=== PATIENT | male | born 1965 | race Caucasian/White ===

== ENCOUNTER 2018-10-06 10:04 | Emergency (ER) | payer MEDICAID ==
[~2018-10-06] VITALS: Ht 177.8 cm; Wt 72.7 kg
[~2018-10-06 10:04] MED LIST: BAC10T PO; DOCU50CA4 PO; NORCO10T PO
[2018-10-06 10:06] VITALS: BP 103/71
== END 2018-10-06 11:05 | disposition home or self-care (01) ==
LOC: ER 10:04
DX: R32 Unspecified urinary incontinence (principal); Z13.89 Encounter for screening for other disorder; G89.29 Other chronic pain; Z86.73 Personal history of transient ischemic attack (TIA), and cerebral infarction without residual deficits; F12.90 Cannabis use, unspecified, uncomplicated; Z79.899 Other long term (current) drug therapy; Z59.0 Homelessness
CPT/HCPCS: 99284

== ENCOUNTER 2018-10-10 09:16 | Emergency (ER) | payer MEDICAID ==
[~2018-10-10] VITALS: Ht 177.8 cm; Wt 72.7 kg
[2018-10-10 09:29] VITALS: BP 91/62
--- NOTE | 2018-10-10 10:10 | NUR ---
Lesley from currently speaking with pt.
== END 2018-10-10 10:40 | disposition home or self-care (01) ==
LOC: ER 09:16
DX: Z46.6 Encounter for fitting and adjustment of urinary device (principal); Z13.89 Encounter for screening for other disorder; G89.29 Other chronic pain; F12.90 Cannabis use, unspecified, uncomplicated; F17.200 Nicotine dependence, unspecified, uncomplicated; Z86.73 Personal history of transient ischemic attack (TIA), and cerebral infarction without residual deficits
CPT/HCPCS: 99283

== ENCOUNTER 2018-10-16 18:06 | Emergency (ER) | payer MEDICAID ==
[~2018-10-16] VITALS: Ht 177.8 cm; Wt 72.7 kg
[2018-10-16 18:19] VITALS: BP 118/72
--- NOTE | 2018-10-16 18:52 | NUR ---
Provided pt with [facility] [employer] documentation after explaining the inappropriateness of the ED providing supplies for a chronic issue. Pt verbalized understanding. PRATIMA Vargas reiterated pt needed to follow up with source of prescription rather than ED./
== END 2018-10-16 19:50 | disposition home or self-care (01) ==
LOC: ER 18:07
DX: N39.498 Other specified urinary incontinence (principal); G89.29 Other chronic pain; F12.90 Cannabis use, unspecified, uncomplicated; Z86.73 Personal history of transient ischemic attack (TIA), and cerebral infarction without residual deficits; Z99.3 Dependence on wheelchair; Z79.899 Other long term (current) drug therapy
CPT/HCPCS: 99281

== ENCOUNTER 2019-09-17 07:46 | Emergency (ER) | payer MEDICAID ==
[~2019-09-17] VITALS: Ht 177.8 cm; Wt 76.4 kg
--- NOTE | 2019-09-17 08:13 | NUR ---
2-PERSON BED BATH PROVIDED. PT COVERED IN DRIED FECES.
[2019-09-17 08:41] LABS: URINE AMPHETAMINE SCREEN POSITIVE (Neg); URINE BARBITUATE SCREEN NEGATIVE (Neg); URINE BENZODIAZEPINES SCREEN NEGATIVE (Neg); URINE CANNABINOID SCREEN POSITIVE (Neg); URINE COCAINE SCREEN NEGATIVE (Neg); URINE METHADONE SCREEN NEGATIVE (Neg); URINE OPIATE SCREEN NEGATIVE (Neg); URINE PHENCYCLIDINE SCREEN NEGATIVE (Neg)
[2019-09-17 08:52] LABS: BASOPHILS # (AUTO) 0.1 X10'3 (0-0.2); BASOPHILS % (AUTO) 1.2 % (0-1); EOSINOPHILS # (AUTO) 0.2 X10'3 (0-0.9); EOSINOPHILS % (AUTO) 3.2 % (0-6); HEMATOCRIT 39.2 % (42.0-52.0); HEMOGLOBIN 13.2 g/dl (14.0-17.9); LYMPHOCYTES # (AUTO) 1.4 X10'3 (1.1-4.8); LYMPHOCYTES % (AUTO) 24.3 % (21-51); MEAN CORPUSCULAR HEMOGLOBIN 31.7 PG (27.0-31.0); MEAN CORPUSCULAR HGB CONC 33.6 g/dL (33.0-36.5); MEAN CORPUSCULAR VOLUME 94.2 FL (78-98); MONOCYTES # (AUTO) 0.5 X10'3 (0-0.9); MONOCYTES % (AUTO) 8.6 % (2-12); NEUTROPHILS # (AUTO) 3.6 X10'3 (1.8-7.7); NEUTROPHILS % (AUTO) 62.7 % (42-75); PLATELET COUNT 369 X10'3 (140-440); RED BLOOD COUNT 4.16 X10'6 (4.70-6.10); RED CELL DISTRIBUTION WIDTH 15.2 % (11.5-14.5); WHITE BLOOD COUNT 5.7 X10'3 (4.5-11.0)
[2019-09-17 09:04] LABS: CLARITY,URINE SLIGHTLY CLOUDY (Clear); COLOR,URINE YELLOW (Yellow); GLUCOSE, URINE NEGATIVE (Neg); KETONES,URINE NEGATIVE (Neg); LEUKOCYTE ESTERASE ,URINE NEGATIVE (Neg); NITRITES, URINE POSITIVE (Neg); OCCULT BLOOD,URINE TRACE-INTACT (Neg); PH,URINE 5.5 (4.8-8.0); PROTEIN,URINE NEGATIVE (Neg); UROBILINOGEN,URINE 0.2 E.U/dL (0.2-1.0)
[2019-09-17 09:07] LABS: ALANINE AMINOTRANSFERASE 24 U/L (12-78); ALBUMIN 3.3 G/DL (3.4-5.0); ALBUMIN/GLOBULIN RATIO 0.9 (1.1-1.5); ALKALINE PHOSPHATASE 127 IU/L (46-116); ANION GAP 8 (8-16); ASPARTATE AMINO TRANSFERASE 25 U/L (10-37); BILIRUBIN,TOTAL 0.2 MG/DL (0.1-1.0); BLOOD UREA NITROGEN 14 MG/DL (7-18); BUN/CREATININE RATIO 23.7 (5.4-32.0); CALCIUM 8.8 MG/DL (8.5-10.1); CHLORIDE 110 MMOL/L (99-107); CREATININE 0.59 MG/DL (0.60-1.10); ETHANOL < 0.010 GM/DL (0.0-0.010); GLUCOSE 103 MG/DL (70-104); SODIUM 142 MMOL/L (135-145); TOTAL CARBON DIOXIDE 24.1 MMOL/L (24-32); TOTAL PROTEIN 7.1 G/DL (6.4-8.2); eGFR > 90 ML/MIN
[2019-09-17 09:26] LABS: UA COLLECTION TYPE STRAIGHT CATH
[2019-09-17 09:28] LABS: BACTERIA,URINE 4+ /HPF (Neg); MUCUS STRANDS FEW /LPF (Neg); RBC,URINE 0-2 /HPF (0-2); SQUAMOUS EPITHELIAL CELL,UR FEW /LPF (FEW); WBC,URINE 30-50 /HPF (0-4)
--- NOTE | 2019-09-17 09:32 | NUR ---
Per [facility] SW, pt was able to stand and transfer from [facility] to . This is in [place] contrast to pt's reports medical hx where he reported being parapalegic, which was consistent with received EMS report. Per SW, discharge plan includes [facility] providing taxi to [facility], where pt's WC is currently locked up. Staff called [facility] and confirmed there will be personnel on site there to ensure pt has immediate access to upon arrival via taxi. PRATIMA Sagastume informed of change in pt medical hx.
[2019-09-17 10:18] VITALS: BP 131/81
--- NOTE | 2019-09-17 10:22 | NUR ---
Patient stated that he is parapalegic. Assited to restroom and then ambulated 10ft with moderate assist.
--- NOTE | 2019-09-20 16:38 | NUR ---
PHONE NUMBER LISTED NO GOOD. CALLED CONTACT NUMBER. SHE GAVE ME A NEW PHONE NUMBER [phone]. CALLED PHONE NUMBER TWICE. "I'M SORRY YOU HAVE REACHED A NUMBER THAT DOES NOT HAVE A VOICE MAIL SET UP".
== END 2019-09-17 10:25 | disposition home or self-care (01) ==
LOC: ER 07:46
DX: R53.1 Weakness (principal); F15.10 Other stimulant abuse, uncomplicated; G89.29 Other chronic pain; F12.90 Cannabis use, unspecified, uncomplicated; Z59.0 Homelessness; Z86.73 Personal history of transient ischemic attack (TIA), and cerebral infarction without residual deficits
CPT/HCPCS: 36415; 80053; 80305; 80320; 81001; 85025; 87077; 87088; 87186; 99283

== ENCOUNTER 2020-01-01 14:53 | Inpatient (IN) | payer MEDICAID ==
[~2020-01-01] VITALS: Ht 167.6 cm; Wt 75.5 kg
[2020-01-01] MEDS ORDERED: LORazepam 2 mg/ml vial IV ONE (15:10)
[2020-01-01] MEDS ORDERED: normal saline 1000ML IV soln IVB ONE (15:10)
[2020-01-01] MEDS ORDERED: CefTRIAXone 2gm/D5W 50ml 50 ML IV ONE (15:40)
[2020-01-01 15:45] LABS: BASOPHILS # (AUTO) 0.1 X10'3 (0-0.2); BASOPHILS % (AUTO) 0.8 % (0-1); EOSINOPHILS # (AUTO) 0.2 X10'3 (0-0.9); HEMATOCRIT 40.2 % (42.0-52.0); HEMOGLOBIN 13.2 g/dl (14.0-17.9); LYMPHOCYTES # (AUTO) 1.2 X10'3 (1.1-4.8); LYMPHOCYTES % (AUTO) 15.2 % (21-51); MEAN CORPUSCULAR HEMOGLOBIN 30.7 PG (27.0-31.0); MEAN CORPUSCULAR HGB CONC 32.8 g/dL (33.0-36.5); MEAN CORPUSCULAR VOLUME 93.6 FL (78-98); MEAN PLATELET VOLUME 8.3 FL (7.4-10.4); MONOCYTES # (AUTO) 0.7 X10'3 (0-0.9); NEUTROPHILS # (AUTO) 5.6 X10'3 (1.8-7.7); PLATELET COUNT 277 X10'3 (140-440); RED BLOOD COUNT 4.29 X10'6 (4.70-6.10); RED CELL DISTRIBUTION WIDTH 14.3 % (11.5-14.5); WHITE BLOOD COUNT 7.7 X10'3 (4.5-11.0)
[2020-01-01 16:10] LABS: ALANINE AMINOTRANSFERASE 21 U/L (12-78); ALBUMIN 3.5 G/DL (3.4-5.0); ALKALINE PHOSPHATASE 144 IU/L (46-116); ANION GAP 10 (8-16); ASPARTATE AMINO TRANSFERASE 29 U/L (10-37); BILIRUBIN,TOTAL 0.3 MG/DL (0.1-1.0); BLOOD UREA NITROGEN 13 MG/DL (7-18); BUN/CREATININE RATIO 11.8 (5.4-32.0); CALCIUM 8.5 MG/DL (8.5-10.1); CHLORIDE 104 MMOL/L (99-107); CREATINE KINASE 535 U/L (39-308); ETHANOL < 0.010 GM/DL (0.0-0.010); GLUCOSE 102 MG/DL (70-104); POTASSIUM 3.6 MMOL/L (3.5-5.1); SODIUM 140 MMOL/L (135-145); TOTAL CARBON DIOXIDE 25.6 MMOL/L (24-32); TOTAL PROTEIN 7.1 G/DL (6.4-8.2); eGFR 70 ML/MIN
[2020-01-01 16:11] LABS: ABG BASE EXCESS -0.7 mmol/L (-2.0-3.0); ABG HCO3 25.4 mmol/L (22.0-26.0); ABG PCO2 (T) 47.5 mmHg (35.0-45.0); ABG PH (T) 7.346 (7.350-7.450); ABG PO2 (T) 240.5 mmHg (83-108); ALLEN'S TEST POSITIVE; FCOHb 0.9 % (0.5-1.5); FMetHb 0.1 % (0.3-1.12); TOTAL HEMOGLOBIN 12.7 G/dl (14.0-17.9)
[2020-01-01] MEDS ORDERED: succinylcholine 20mg/ml inj IV ONE (16:12)
--- NOTE | 2020-01-01 16:12 | NUR ---
Patient placed into room #2 to prepare for intubation. Patient continues to have periods of LOC with apnea. RT at bedside, PRATIMA Sagastume and MD Narayanan at bedside.
[2020-01-01 16:18] LABS: CLARITY,URINE CLOUDY (Clear); COLOR,URINE YELLOW (Yellow); GLUCOSE, URINE NEGATIVE (Neg); KETONES,URINE TRACE mg/dl (Neg); LEUKOCYTE ESTERASE ,URINE MODERATE (Neg); NITRITES, URINE POSITIVE (Neg); OCCULT BLOOD,URINE NEGATIVE (Neg); PH,URINE 6.5 (4.8-8.0); PROTEIN,URINE TRACE mg/dl (Neg)
--- NOTE | 2020-01-01 16:20 | NUR ---
1620 Etomidate 20 mg IVP given prior to intubation. 1621 Succytocholine 100 mg IVP given prior to intubation. 1622 first intubation attempt. 1624 second intubation attempt successful.
[2020-01-01 16:26] LABS: UA COLLECTION TYPE FOLEY CATH
[2020-01-01 16:29] LABS: URINE AMPHETAMINE SCREEN POSITIVE (Neg); URINE BARBITUATE SCREEN NEGATIVE (Neg); URINE BENZODIAZEPINES SCREEN NEGATIVE (Neg); URINE CANNABINOID SCREEN POSITIVE (Neg); URINE COCAINE SCREEN NEGATIVE (Neg); URINE METHADONE SCREEN NEGATIVE (Neg); URINE OPIATE SCREEN NEGATIVE (Neg); URINE PHENCYCLIDINE SCREEN NEGATIVE (Neg)
[2020-01-01 16:30] LABS: WBC,URINE 50-100 /HPF (0-4)
[2020-01-01] MEDS ORDERED: midazolam 2 mg/2 ml injection ONE (16:30)
[2020-01-01] MEDS ORDERED: midazolam 100mg in NS 100ml 100 ML IV PRN ×3 (16:30→16:52)
[2020-01-01] MEDS ORDERED: FENTANYL-0.9 % NACL/PF 100 ML IV PRN ×2 (16:30→16:52)
[2020-01-01] MEDS ORDERED: MIDAZolam 5mg/ml 2ml vial IV ONE (16:30)
[2020-01-01 16:31] LABS: BACTERIA,URINE 4+ /HPF (Neg); MUCUS STRANDS FEW /LPF (Neg); RBC,URINE 0-2 /HPF (0-2); SQUAMOUS EPITHELIAL CELL,UR FEW /LPF (FEW); TRANSITIONAL EPI CELLS,URINE FEW /HPF; WBC CLUMPS,URINE FEW /HPF (NEGATIVE)
[2020-01-01] MEDS: FENTANYL-0.9 % NACL/PF 100 ML IV PRN (16:43)
[2020-01-01] MEDS ORDERED: BACL20TA PO (16:49)
[2020-01-01] MEDS ORDERED: FLO0.4C PO (16:49)
[2020-01-01] MEDS ORDERED: etomidate 2mg/ml inj. IV ONE (16:50)
[2020-01-01] MEDS ORDERED: ipratropium/albuterol 3ml nebule NEB PRN (16:55)
[2020-01-01] MEDS ORDERED: midazolam 2 mg/2 ml injection IV ONE (16:55)
[2020-01-01] MEDS ORDERED: fentaNYL/PF 50MCG/1 ML 2ML syringe IV PRN (16:55)
[2020-01-01] MEDS ORDERED: ondansetron/PF 4mg/2ml inj IV PRN (16:55)
[2020-01-01] MEDS ORDERED: potassium Cl 20 mEq SR tablet PO PRN ×2 (16:55)
[2020-01-01] MEDS ORDERED: acetaminophen 325mg tablet PO PRN ×2 (16:55)
[2020-01-01] MEDS ORDERED: potassium CL 10mEq/100ml bag 100 ML IV PRN (16:55)
[2020-01-01] MEDS ORDERED: LIDOcaine 2% 10ml TOPICAL JELLY (Urojet) TP ONE (16:55)
[2020-01-01 17:21] LABS: ABG BASE EXCESS -0.5 mmol/L (-2.0-3.0); ABG HCO3 23.3 mmol/L (22.0-26.0); ABG OXYGEN SATURATION 98.8 % (95-98); ABG PH (T) 7.421 (7.350-7.450); ABG PO2 (T) 203.5 mmHg (83-108); ALLEN'S TEST POSITIVE; FCOHb 0.4 % (0.5-1.5); FMetHb 0.1 % (0.3-1.12); FO2Hb 98.3 % (94-100); PEEP 5 cm H2O; RESPIRATORY RATE 18 b/min; TIDAL VOLUME 500 mL; TOTAL HEMOGLOBIN 12.5 G/dl (14.0-17.9)
[2020-01-01] MEDS: normal saline 1000ml 1,000 ML IV SCH (17:48)
--- NOTE | 2020-01-01 18:12 | NUR ---
With Pat at this time to CT RT Dc at bedside.
--- NOTE | 2020-01-01 18:23 | NUR ---
Back from CT at this time, patient positioned for comfort, no signs of distress noted.
--- NOTE | 2020-01-01 18:55 | NUR ---
Assumed care of the patient at this time. Fentanyl drip is currently 50mcg/hour Midlazopam drip is currently 1mg/hour NSS 0.9% drip is 125ml/hour
--- NOTE | 2020-01-01 19:05 | NUR ---
Additional warm blankets placed on the patient due to temp of 35.1C/95.2F via temp probe rowe.
[2020-01-01] MEDS: ipratropium/albuterol 3ml nebule NEB SCH ×2 (19:39→23:00)
[2020-01-01] MEDS ORDERED: docusate sod 100mg capsule PO SCH (20:00)
--- NOTE | 2020-01-01 20:03 | NUR ---
Patient in room ED. I have received report from Bonnie ZUNIGA, and had the opportunity to ask questions and assume patient care. RM 2008 is ready and awaiting PT arrival.
--- NOTE | 2020-01-01 20:03 | NUR ---
Report to JOAN Thomas RN. Pt to be transported shortly.
[2020-01-01] MEDS: famotidine/PF 10 mg/ml inj IV SCH (20:07)
[2020-01-01] MEDS: heparin, porcine 5000 units/ml vial SQ SCH (20:14)
[2020-01-01 21:00] VITALS: BP 96/63
[2020-01-01 23:00] VITALS: BP 89/60
[2020-01-02] VITALS (15 sets, daily range): BP systolic 87–103; BP diastolic 47–64
[2020-01-02] MEDS: normal saline 1000ml 1,000 ML IV SCH ×2 (00:25→12:17)
[2020-01-02] MEDS: ipratropium/albuterol 3ml nebule NEB SCH ×3 (03:01→10:31)
[2020-01-02] MEDS: FENTANYL-0.9 % NACL/PF 100 ML IV PRN (03:57)
[2020-01-02 04:46] LABS: ABG BASE EXCESS -2.6 mmol/L (-2.0-3.0); ABG HCO3 20.3 mmol/L (22.0-26.0); ABG OXYGEN SATURATION 97.7 % (95-98); ABG PCO2 (T) 27.4 mmHg (35.0-45.0); ABG PH (T) 7.481 (7.350-7.450); ABG PO2 (T) 98.8 mmHg (83-108); ALLEN'S TEST POSITIVE; FCOHb 0.3 % (0.5-1.5); FMetHb 0.1 % (0.3-1.12); FO2Hb 97.3 % (94-100); PATIENT TEMPERATURE 35.4; PEEP 5 cm H2O; RESPIRATORY RATE 18 b/min; TIDAL VOLUME 500 mL; TOTAL HEMOGLOBIN 12.1 G/dl (14.0-17.9)
[2020-01-02 05:17] LABS: EOSINOPHILS # (AUTO) 0.2 X10'3 (0-0.9); EOSINOPHILS % (AUTO) 3.8 % (0-6); HEMATOCRIT 34.4 % (42.0-52.0); HEMOGLOBIN 11.5 g/dl (14.0-17.9); LYMPHOCYTES # (AUTO) 1.5 X10'3 (1.1-4.8); LYMPHOCYTES % (AUTO) 30.1 % (21-51); MEAN CORPUSCULAR HEMOGLOBIN 31.2 PG (27.0-31.0); MEAN CORPUSCULAR HGB CONC 33.4 g/dL (33.0-36.5); MEAN CORPUSCULAR VOLUME 93.5 FL (78-98); MEAN PLATELET VOLUME 8.6 FL (7.4-10.4); MONOCYTES # (AUTO) 0.5 X10'3 (0-0.9); MONOCYTES % (AUTO) 9.7 % (2-12); NEUTROPHILS # (AUTO) 2.7 X10'3 (1.8-7.7); NEUTROPHILS % (AUTO) 55.4 % (42-75); PLATELET COUNT 211 X10'3 (140-440); RED BLOOD COUNT 3.68 X10'6 (4.70-6.10); RED CELL DISTRIBUTION WIDTH 14.6 % (11.5-14.5); WHITE BLOOD COUNT 4.9 X10'3 (4.5-11.0)
[2020-01-02 05:27] LABS: ALANINE AMINOTRANSFERASE 13 U/L (12-78); ALBUMIN 2.5 G/DL (3.4-5.0); ALBUMIN/GLOBULIN RATIO 0.9 (1.1-1.5); ALKALINE PHOSPHATASE 114 IU/L (46-116); ANION GAP 6 (8-16); ASPARTATE AMINO TRANSFERASE 24 U/L (10-37); BILIRUBIN,TOTAL 0.4 MG/DL (0.1-1.0); BLOOD UREA NITROGEN 9 MG/DL (7-18); BUN/CREATININE RATIO 11.5 (5.4-32.0); CALCIUM 7.5 MG/DL (8.5-10.1); CHLORIDE 111 MMOL/L (99-107); CREATININE 0.78 MG/DL (0.60-1.10); GLUCOSE 91 MG/DL (70-104); MAGNESIUM 1.9 MG/DL (1.5-2.4); PHOSPHORUS 2.5 MG/DL (2.3-4.5); SODIUM 142 MMOL/L (135-145); TOTAL CARBON DIOXIDE 25.2 MMOL/L (24-32); TOTAL PROTEIN 5.3 G/DL (6.4-8.2); eGFR > 90 ML/MIN
[2020-01-02 05:41] LABS: POTASSIUM 2.7 MMOL/L (3.5-5.1)
[2020-01-02] MEDS: potassium CL 10mEq/100ml bag 100 ML IV PRN ×6 (05:49→11:41)
--- NOTE | 2020-01-02 06:36 | NUR ---
Problems reprioritized. Patient report given, questions answered & plan of care reviewed with Sadia ZUNIGA.
[2020-01-02] MEDS: famotidine/PF 10 mg/ml inj IV SCH (07:03)
[2020-01-02] MEDS: heparin, porcine 5000 units/ml vial SQ SCH (07:03)
[2020-01-02] MEDS ORDERED: docusate sodium 100mg/10ml UD cup PO SCH (07:14)
[2020-01-02] MEDS ORDERED: ipratropium/albuterol 3ml nebule NEB PRN (10:50)
[2020-01-02] MEDS ORDERED: racepinephrine 11.25mg/0.5ml nebule NEB PRN (10:50)
--- NOTE | 2020-01-02 12:46 | NUR ---
Sam consult: Pt extubated this AM admit w/ meth abuse, acute respiratory failure, heat exhaustion, toxic encephalopathy, and hx homeless per MD. Advanced to regular diet per TRAINING DEVELOPMENT DIRECTOR recs this AM. Will monitor for protein needs s/p extubation. Sam Prieto; skin intact and no edema. Addendum: 01/02/20 at [address] Amended: Links added.
[2020-01-02] MEDS ORDERED: POTASSIUM BICARB 20meq eff tab 20 MEQ TABLET.EFF PO SCH (13:00)
[2020-01-02] MEDS ORDERED: ipratropium/albuterol 3ml nebule NEB SCH (15:00)
--- NOTE | 2020-01-02 15:27 | NUR ---
Pt left the hospital against medical advise (AMA) at this time. The risk of leaving AMA was explained to the patient. Dr. De La Torre aware. Pt has his own wheelchair, pt had his wheelchair, cell phone, shoes, glasses, pop money in his wallet with him upon leaving.
[2020-01-02] MEDS ORDERED: mineral oil/petrolatum ophthal oint EACHEYE SCH (20:00)
== END 2020-01-02 15:30 | disposition left against medical advice (07) | DRG 720 ==
LOC: ER 14:53 → ED HOLD 16:52 → EDBEDREQTM 18:05 → EDBEDREQ 19:51 → CICU 2S 20:15
PROVIDERS: ADMIT Internal Medicine Critical Care Medicine; ATTEND Internal Medicine Critical Care Medicine
PROC: 5A1935Z Respiratory Ventilation, Less than 24 Consecutive Hours (ICD-10-PCS; principal; 2020-01-01)
PROC: 0BH17EZ Insertion of Endotracheal Airway into Trachea, Via Natural or Artificial Opening (ICD-10-PCS; 2020-01-01)
DX: A41.9 Sepsis, unspecified organism (principal); J96.02 Acute respiratory failure with hypercapnia; R65.21 Severe sepsis with septic shock; G92 Toxic encephalopathy; G82.20 Paraplegia, unspecified; F15.10 Other stimulant abuse, uncomplicated; F12.90 Cannabis use, unspecified, uncomplicated; F32.9 Major depressive disorder, single episode, unspecified; G89.29 Other chronic pain; M54.9 Dorsalgia, unspecified; F17.210 Nicotine dependence, cigarettes, uncomplicated; Z53.29 Procedure and treatment not carried out because of patient's decision for other reasons; N30.00 Acute cystitis without hematuria; T67.5XXA Heat exhaustion, unspecified, initial encounter; X30.XXXA Exposure to excessive natural heat, initial encounter; Y92.89 Other specified places as the place of occurrence of the external cause; Z59.0 Homelessness; Z86.73 Personal history of transient ischemic attack (TIA), and cerebral infarction without residual deficits; Z79.899 Other long term (current) drug therapy
CPT/HCPCS: 31500; 36415; 36600; 70450; 71045; 80053; 80305; 80320; 81001; 82550; 82803; 82948; 83605; 83735; 84100; 84132; 84145; 85018; 85025; 87040; 87070; 87077; 87081; 87088; 87185; 87186; 87635; 92508; 92616; 93005; 94002; 94003; 94640; 94760; 96365; 99291; G0378; J0330; J0696; J1644; J2060; J2250; J3010; J3480; J3490; J7030

== ENCOUNTER 2020-03-22 02:55 | Emergency (ER) | payer MEDICAID ==
[~2020-03-22] VITALS: Ht 177.8 cm; Wt 72.7 kg
[~2020-03-22 02:55] MED LIST changes: -BAC10T PO; +BACL20TA PO; -DOCU50CA4 PO; +FLO0.4C PO; -NORCO10T PO
[2020-03-22 03:04] VITALS: BP 91/63
[2020-03-22] MEDS ORDERED: LIDOcaine 1% W/epiNEPHrine 1:200,000 10ml vial IJ ONE (03:10)
[2020-03-22] MEDS ORDERED: SULF1TAB49 PO (03:12)
[2020-03-22] MEDS ORDERED: CEPH500C5 PO (03:12)
== END 2020-03-22 03:40 | disposition home or self-care (01) ==
LOC: ER 02:56
DX: L02.415 Cutaneous abscess of right lower limb (principal); G89.29 Other chronic pain; F12.90 Cannabis use, unspecified, uncomplicated; Z86.73 Personal history of transient ischemic attack (TIA), and cerebral infarction without residual deficits; Z59.0 Homelessness; Z79.899 Other long term (current) drug therapy
CPT/HCPCS: 10060; 99284

== ENCOUNTER 2020-04-02 23:49 | Emergency (ER) | payer MEDICAID ==
[~2020-04-02] VITALS: Ht 162.6 cm; Wt 76.4 kg
[2020-04-02 23:58] VITALS: BP 120/60
== END 2020-04-03 01:27 | disposition home or self-care (01) ==
LOC: ER 23:50
DX: L02.415 Cutaneous abscess of right lower limb (principal); G89.29 Other chronic pain; F32.9 Major depressive disorder, single episode, unspecified; F12.90 Cannabis use, unspecified, uncomplicated; Z86.73 Personal history of transient ischemic attack (TIA), and cerebral infarction without residual deficits; Z79.899 Other long term (current) drug therapy
CPT/HCPCS: 99284

== ENCOUNTER 2020-05-08 21:58 | Emergency (ER) | payer MEDICAID ==
[~2020-05-08] VITALS: Ht 177.8 cm; Wt 75.0 kg
[2020-05-08 22:54] LABS: BASOPHILS % (AUTO) 0.8 % (0-1); EOSINOPHILS # (AUTO) 0.2 X10'3 (0-0.9); EOSINOPHILS % (AUTO) 2.8 % (0-6); HEMATOCRIT 35.1 % (42.0-52.0); HEMOGLOBIN 11.5 g/dl (14.0-17.9); LYMPHOCYTES # (AUTO) 1.9 X10'3 (1.1-4.8); LYMPHOCYTES % (AUTO) 33.3 % (21-51); MEAN CORPUSCULAR HEMOGLOBIN 31.2 PG (27.0-31.0); MEAN CORPUSCULAR HGB CONC 32.9 g/dL (33.0-36.5); MEAN PLATELET VOLUME 8.6 FL (7.4-10.4); MONOCYTES # (AUTO) 0.6 X10'3 (0-0.9); MONOCYTES % (AUTO) 10.7 % (2-12); NEUTROPHILS # (AUTO) 3.1 X10'3 (1.8-7.7); NEUTROPHILS % (AUTO) 52.4 % (42-75); PLATELET COUNT 405 X10'3 (140-440); RED BLOOD COUNT 3.69 X10'6 (4.70-6.10); RED CELL DISTRIBUTION WIDTH 15.8 % (11.5-14.5); WHITE BLOOD COUNT 5.8 X10'3 (4.5-11.0)
[2020-05-08 23:16] LABS: ALANINE AMINOTRANSFERASE 25 U/L (12-78); ALBUMIN 3.1 G/DL (3.4-5.0); ALBUMIN/GLOBULIN RATIO 0.8 (1.1-1.5); ALKALINE PHOSPHATASE 129 IU/L (46-116); ANION GAP 4 (8-16); ASPARTATE AMINO TRANSFERASE 19 U/L (10-37); BILIRUBIN,TOTAL 0.2 MG/DL (0.1-1.0); BLOOD UREA NITROGEN 15 MG/DL (7-18); BUN/CREATININE RATIO 17.4 (5.4-32.0); CHLORIDE 110 MMOL/L (99-107); CREATININE 0.86 MG/DL (0.60-1.10); GLUCOSE 102 MG/DL (70-104); POTASSIUM 3.8 MMOL/L (3.5-5.1); SODIUM 146 MMOL/L (135-145); TOTAL PROTEIN 7.2 G/DL (6.4-8.2); eGFR > 90 ML/MIN
[2020-05-08] MEDS ORDERED: normal saline 1000ML IV soln IVB ONE (23:55)
[2020-05-09 00:14] LABS: ETHANOL < 0.010 GM/DL (0.0-0.010)
[2020-05-09 00:59] LABS: LACTIC SEPSIS 0.8 MMOL/L (0.4-2.0)
[2020-05-09 01:16] VITALS: BP 114/62
[2020-05-09 01:17] LABS: COLOR,URINE YELLOW (Yellow); GLUCOSE, URINE NEGATIVE (Neg); KETONES,URINE NEGATIVE (Neg); LEUKOCYTE ESTERASE ,URINE NEGATIVE (Neg); NITRITES, URINE NEGATIVE (Neg); OCCULT BLOOD,URINE TRACE-INTACT (Neg); PROTEIN,URINE NEGATIVE (Neg)
[2020-05-09 01:18] LABS: CLARITY,URINE SLIGHTLY CLOUDY (Clear); UA COLLECTION TYPE CLN CATCH MIDSTREAM
[2020-05-09 01:19] LABS: BACTERIA,URINE 3+ /HPF (Neg); RBC,URINE 0-2 /HPF (0-2)
[2020-05-09 01:30] LABS: URINE AMPHETAMINE SCREEN POSITIVE (Neg); URINE BARBITUATE SCREEN NEGATIVE (Neg); URINE BENZODIAZEPINES SCREEN NEGATIVE (Neg); URINE CANNABINOID SCREEN POSITIVE (Neg); URINE COCAINE SCREEN NEGATIVE (Neg); URINE METHADONE SCREEN NEGATIVE (Neg); URINE OPIATE SCREEN NEGATIVE (Neg); URINE PHENCYCLIDINE SCREEN NEGATIVE (Neg)
[2020-05-09 01:43] LABS: SQUAMOUS EPITHELIAL CELL,UR FEW /LPF (FEW)
== END 2020-05-09 04:19 | disposition home or self-care (01) ==
LOC: ER 21:59
DX: R41.82 Altered mental status, unspecified (principal); F15.10 Other stimulant abuse, uncomplicated; R60.0 Localized edema; G89.29 Other chronic pain; F32.9 Major depressive disorder, single episode, unspecified; F12.90 Cannabis use, unspecified, uncomplicated; Z86.73 Personal history of transient ischemic attack (TIA), and cerebral infarction without residual deficits; Z98.890 Other specified postprocedural states; Z59.0 Homelessness; Z79.899 Other long term (current) drug therapy
CPT/HCPCS: 36415; 70450; 80053; 80305; 80320; 81001; 82140; 82948; 83605; 83880; 84484; 85025; 87040; 87077; 87088; 87186; 93005; 96360; 99285; J7030

== ENCOUNTER 2020-05-23 15:47 | Emergency (ER) | payer MEDICAID ==
[~2020-05-23] VITALS: Ht 175.3 cm; Wt 58.0 kg
--- NOTE | 2020-05-23 16:38 | NUR ---
PT TO CT
[2020-05-23 16:56] LABS: ALBUMIN 2.6 G/DL (3.4-5.0); ANION GAP 6 (8-16); BLOOD UREA NITROGEN 13 MG/DL (7-18); BUN/CREATININE RATIO 19.7 (5.4-32.0); CALCIUM 7.6 MG/DL (8.5-10.1); CHLORIDE 110 MMOL/L (99-107); CREATININE 0.66 MG/DL (0.60-1.10); GLUCOSE 89 MG/DL (70-104); POTASSIUM 3.4 MMOL/L (3.5-5.1); SODIUM 143 MMOL/L (135-145); TOTAL CARBON DIOXIDE 27.3 MMOL/L (24-32); eGFR > 90 ML/MIN
[2020-05-23 16:57] LABS: ETHANOL < 0.010 GM/DL (0.0-0.010)
--- NOTE | 2020-05-23 17:09 | NUR ---
PT IS SLEEPING, LIGHT SNORING RESPIRATIONS, O2 SAT IS 79% ON ROOM AIR, PLACED PT ON 4LITERS 02 NASAL CANNULA,
--- NOTE | 2020-05-23 17:31 | NUR ---
IN AND OUT CATH DONE WITH STERILE TECHNIQUE, 600ML OF YELLOW URINE OUT, SAMPLE SENT TO LAB
--- NOTE | 2020-05-23 17:32 | NUR ---
DR FINNEY AWARE PT IS ON 02, PT NOT OPENING EYES, PUPILS ARE PINPOINT AND REACTIVE TO LIGHT BILATERALLY, NOT TALKING, WITHDRAWS FROM PAIN,
--- NOTE | 2020-05-23 17:43 | NUR ---
SPOKE WITH ROBIN AT D [phone]. THEY HAVE PTS ELECTRIC W/C AT [address]. THEY WILL AZALIALL CHRISTINE AND SEE IF Ramin HAS ANYONE THAT CAN BRING IT TO THE ER.
[2020-05-23 17:47] LABS: URINE AMPHETAMINE SCREEN POSITIVE (Neg); URINE BARBITUATE SCREEN NEGATIVE (Neg); URINE BENZODIAZEPINES SCREEN NEGATIVE (Neg); URINE CANNABINOID SCREEN NEGATIVE (Neg); URINE COCAINE SCREEN NEGATIVE (Neg); URINE METHADONE SCREEN NEGATIVE (Neg); URINE OPIATE SCREEN NEGATIVE (Neg); URINE PHENCYCLIDINE SCREEN NEGATIVE (Neg)
--- NOTE | 2020-05-23 18:05 | NUR ---
PTS W/C OUTSIDE ER BAY DOORS LOCKED IN [facility] SHOW
--- NOTE | 2020-05-23 19:58 | NUR ---
pt continues to sleep, arouseable to painful stimuli, not talking or following commands, snoring respirations
--- NOTE | 2020-05-23 20:30 | NUR ---
PT RESPONDING TO PAINFUL STIMULI, GROANING, STILL NOT FOLLOWING COMMANDS
--- NOTE | 2020-05-23 21:30 | NUR ---
DR FINNEY AT BEDSIDE TO [facility] PT
[2020-05-23 21:55] LABS: CLARITY,URINE CLEAR (Clear); COLOR,URINE YELLOW (Yellow); GLUCOSE, URINE NEGATIVE (Neg); KETONES,URINE NEGATIVE (Neg); LEUKOCYTE ESTERASE ,URINE NEGATIVE (Neg); NITRITES, URINE NEGATIVE (Neg); OCCULT BLOOD,URINE NEGATIVE (Neg); PROTEIN,URINE NEGATIVE (Neg); UROBILINOGEN,URINE 0.2 E.U/dL (0.2-1.0)
[2020-05-23 21:57] LABS: BASOPHILS # (AUTO) 0.1 X10'3 (0-0.2); BASOPHILS % (AUTO) 1.6 % (0-1); EOSINOPHILS # (AUTO) 0.2 X10'3 (0-0.9); EOSINOPHILS % (AUTO) 2.5 % (0-6); HEMATOCRIT 31.6 % (42.0-52.0); HEMOGLOBIN 10.5 g/dl (14.0-17.9); LYMPHOCYTES # (AUTO) 1.4 X10'3 (1.1-4.8); MEAN CORPUSCULAR HEMOGLOBIN 31.8 PG (27.0-31.0); MEAN CORPUSCULAR HGB CONC 33.2 g/dL (33.0-36.5); MEAN CORPUSCULAR VOLUME 95.9 FL (78-98); MEAN PLATELET VOLUME 8.4 FL (7.4-10.4); MONOCYTES # (AUTO) 0.7 X10'3 (0-0.9); NEUTROPHILS % (AUTO) 70.9 % (42-75); PLATELET COUNT 360 X10'3 (140-440); RED CELL DISTRIBUTION WIDTH 15.9 % (11.5-14.5); WHITE BLOOD COUNT 8.4 X10'3 (4.5-11.0)
[2020-05-23 21:58] LABS: ALANINE AMINOTRANSFERASE 28 U/L (12-78); ALBUMIN 2.6 G/DL (3.4-5.0); ALBUMIN/GLOBULIN RATIO 0.7 (1.1-1.5); ALKALINE PHOSPHATASE 113 IU/L (46-116); ASPARTATE AMINO TRANSFERASE 30 U/L (10-37); BILIRUBIN,DIRECT 0.1 MG/DL (0-0.3); BILIRUBIN,TOTAL 0.1 MG/DL (0.1-1.0); TOTAL PROTEIN 6.5 G/DL (6.4-8.2)
[2020-05-23 22:00] LABS: UA COLLECTION TYPE FOLEY CATH
--- NOTE | 2020-05-24 00:23 | NUR ---
pt is resting quietly on gurney, resp even and unlabored, pt has been evaluated by Dr Coleman, pt still not opening eyes to voice, not following commands, difficult to understand when he talks
--- NOTE | 2020-05-24 01:30 | NUR ---
ASSUMED CARE OF PATIENT. STERNAL RUBBED PT AND PT AWOKE AND STATED "STOP MOTHERFUCKER". PT WAS LETHARGIC AND SLURRED SPEECH. COULD NOT ANSWER ALERT AND ORIENTED QUESTIONS APPROPRIATELY. MD AND FLUTE POLISHER AWARE
[2020-05-24 06:45] VITALS: BP 107/78
--- NOTE | 2020-05-24 06:49 | NUR ---
SPOKE WITH PT REGARDING DISCHARGE. PT WAS ASKED WHERE HE WILL GO PT IS BEING DISCHARGE. PT RESPONDS "I DONT KNOW". [facility] BEING PAGE AND LETTING PT REST AT PRESENT TIME.
--- NOTE | 2020-05-24 08:21 | NUR ---
SPOKE WITH LIZZY FROM [facility] AND REPORTS SHE WILL BE COMING TO SPEAK WITH PT.
--- NOTE | 2020-05-24 08:45 | NUR ---
Spoke with patient regarding discahrge plan, states he does not have one, asked if he would be willing to go to the [place], states that he does not know, resources given on food/usp resources, list of reasonably prices motels and [facility], updated primary nurse Natalie
== END 2020-05-24 09:23 | disposition home or self-care (01) ==
LOC: ER 15:48
DX: F15.10 Other stimulant abuse, uncomplicated (principal); G93.40 Encephalopathy, unspecified; G89.29 Other chronic pain; F32.9 Major depressive disorder, single episode, unspecified; Z98.890 Other specified postprocedural states; Z79.899 Other long term (current) drug therapy
CPT/HCPCS: 36415; 70450; 80048; 80076; 80305; 80320; 81003; 85025; 99284